=== PATIENT | male | born 1990 | race Caucasian/White ===

== ENCOUNTER 2016-09-08 21:50 | Emergency (ER) | payer SELFPAY ==
[2016-09-08] MEDS ORDERED: NORMAL SALINE 1000 ML 1,000 ML IV ONE (22:54)
[2016-09-08] MEDS ORDERED: IPRATROPIUM/ALBUTEROL 0.5-2.5 MG/3 ML AMPUL NEB ONE (22:54)
[2016-09-08] MEDS ORDERED: METHYLPREDNISOLONE INJ 125 MG/2 ML SDV IV ONE (22:54)
--- NOTE | 2016-09-08 22:55 | ER Document Report ---
HPI - HPI Patient complains to provider of: Cough and wheezing Onset: Other - 3 days Onset/Duration: Persistent Quality of pain: Achy Pain Level: 3 Context: Patient complains of productive cough for the past 3 days with wheezing. Patient complains of congestion and chest discomfort. Patient denies any fever. Patient states he has had symptoms like this in the past when he was diagnosed with pneumonia. Associated Symptoms: Chest pain, Productive cough, Rhinnorhea. denies: Fever, Sore throat Exacerbated by: Coughing, Deep breathing Relieved by: Denies Similar symptoms previously: Yes Recently seen / treated by doctor: No - ROS ROS below otherwise negative: Yes Systems Reviewed and Negative: Yes All other systems reviewed and negative - CONSTITUTIONAL Constitutional: REPORTS: Chills. DENIES: Fever - EENT EENT: REPORTS: Nasal Drainage-Clear, Congestion - CARDIOVASCULAR Cardiovascular: REPORTS: Chest pain - RESPIRATORY Respiratory: REPORTS: Coughing. DENIES: Trouble Breathing - GASTROINTESTINAL Gastrointestinal: DENIES: Abdominal Pain, Nausea, Patient vomiting - REPRODUCTIVE Reproductive: DENIES: : - MUSCULOSKELETAL Musculoskeletal: DENIES: Back Pain - DERM Skin Color: Normal Skin Problems: None Past Medical History - General Information source: Patient - Social History Smoking Status: Current Every Day Smoker Frequency of alcohol use: None Drug Abuse: None Occupation: restaurant Lives with: Spouse/Significant other Family History: Arthritis, COPD, DM, Hyperlipidemia, Hypertension, Malignancy Patient has suicidal ideation: No Patient has homicidal ideation: No Pulmonary Medical History: Reports: Hx Asthma, Hx Bronchitis, Hx Pneumonia Renal/ Medical History: Denies: Hx Peritoneal Dialysis Psychiatric Medical History: Denies: Hx Depression Surgical Hx: Negative - Immunizations Immunizations up to date: Yes Hx Diphtheria, Pertussis, Tetanus Vaccination: Yes Vertical Provider Document - CONSTITUTIONAL Agree With Documented VS: Yes Exam Limitations: No Limitations General Appearance: WD/WN, No Apparent Distress - INFECTION CONTROL TRAVEL OUTSIDE OF THE [place] IN LAST 30 DAYS: No - HEENT HEENT: Atraumatic, Normocephalic. negative: Pharyngeal Exudate, Pharyngeal Tenderness, Pharyngeal Erythema, Tympanic Membrane Red, Tympanic Membrane Bulging Notes: clear rhinorrhea - NECK Neck: Normal Inspection, Supple. negative: Lymphadenopathy-Left, Lymphadenopathy-Right - RESPIRATORY Respiratory: No Respiratory Distress, Wheezing O2 Sat by Pulse Oximetry: 97 - CARDIOVASCULAR Cardiovascular: Regular Rhythm, No Murmur, Tachycardia - BACK Back: Normal Inspection - MUSCULOSKELETAL/EXTREMETIES Musculoskeletal/Extremeties: AMADORAURORAMONIQUE - NEURO Level of Consciousness: Awake, Alert, Appropriate Motor/Sensory: No Motor Deficit - DERM Integumentary: Warm, Dry, No Rash Course - Re-evaluation Re-evalutation: 09/09/16 02:48 Patient with decreased wheezing and increased air movement bilaterally. Patient states he is feeling much improved. Patient advised of his hypokalemia and need to see a primary doctor to have this rechecked. Discussed increasing potassium intake through diet. 09/09/16 02:50 The patient has been informed that they may have pre-hypertension or hypertension based on a blood pressure reading in the emergency department. I recommend that patient call the primary care provider listed on their discharge instructions or a physician of their choice by this week to arrange follow-up for further evaluation of possible pre-hypertension her hypertension. 09/09/16 04:39 - Vital Signs Vital signs: Temp Pulse Resp BP Pulse Ox 98.1 F 119 H 20 141/76 H 97 09/08/16 21:55 09/08/16 21:55 09/08/16 21:55 09/08/16 21:55 09/08/16 21:55 - Laboratory Result Diagrams: 09/08/16 23:50 09/08/16 23:50 Laboratory results interpreted by me: 09/09/16 02:49 Labs- Last Values WBC 9.9 10^3/uL (4.0-10.5) 09/08/16 23:50 RBC 4.76 10^6/uL (4.35-5.55) 09/08/16 23:50 Hgb 13.3 g/dL (13.5-17.0) L 09/08/16 23:50 Hct 40.2 % (37.9-51.0) 09/08/16 23:50 MCV 84 fl (80-97) 09/08/16 23:50 MCH 27.9 pg (27.0-33.4) 09/08/16 23:50 MCHC 33.1 g/dL (32.0-36.0) 09/08/16 23:50 RDW 14.1 % (11.5-14.0) H 09/08/16 23:50 Plt Count 210 10^3/uL (150-450) 09/08/16 23:50 Seg Neutrophils % 72.5 % (42-78) 09/08/16 23:50 Lymphocytes % 14.8 % (13-45) 09/08/16 23:50 Monocytes % 11.0 % (3-13) 09/08/16 23:50 Eosinophils % 1.1 % (0-6) 09/08/16 23:50 Basophils % 0.6 % (0-2) 09/08/16 23:50 Absolute Neutrophils 7.2 10^3/uL (1.7-8.2) 09/08/16 23:50 Absolute Lymphocytes 1.5 10^3/uL (0.5-4.7) 09/08/16 23:50 Absolute Monocytes 1.1 10^3/uL (0.1-1.4) 09/08/16 23:50 Absolute Eosinophils 0.1 10^3/uL (0.0-0.6) 09/08/16 23:50 Absolute Basophils 0.1 10^3/uL (0.0-0.2) 09/08/16 23:50 Sodium 140.4 mmol/L (137-145) 09/08/16 23:50 Potassium 3.3 mmol/L (3.6-5.0) L 09/08/16 23:50 Chloride 102 mmol/L (98-107) 09/08/16 23:50 Carbon Dioxide 27 mmol/L (22-30) 09/08/16 23:50 Anion Gap 11 (5-19) 09/08/16 23:50 BUN 12 mg/dL (7-20) 09/08/16 23:50 Creatinine 0.83 mg/dL (0.52-1.25) 09/08/16 23:50 Est GFR ( Amer) > 60 (>60) 09/08/16 23:50 Est GFR (Non-Af Amer) > 60 (>60) 09/08/16 23:50 Glucose 96 mg/dL (75-110) 09/08/16 23:50 Calcium 9.1 mg/dL (8.4-10.2) 09/08/16 23:50 - Diagnostic Test Radiology reviewed: Reports reviewed Discharge - Discharge Clinical Impression: Asthma exacerbation, Hypokalemia, Elevated blood pressure reading Upper respiratory infection Qualifiers: URI type: unspecified URI Qualified Code(s): J06.9 - Acute upper respiratory infection, unspecified Condition: Stable Disposition: HOME, SELF-CARE Instructions: Chest Wall Pain ([facility]), Upper Respiratory Illness ([facility]), Asthma ( [facility]), Steroid Medication, Inhaled Bronchodilators ([facility]), Hypokalemia ([facility]) Additional Instructions: Return as needed for any new or worsening symptoms Follow Up with a primary care for further evaluation, call this week for an appointment Your blood pressure was mildly elevated today, recheck with your primary doctor Your potassium was mildly decreased today, increase foods rich in potassium in your diet. Prescriptions: Albuterol Sulfate [Ventolin Hfa] 2 puff IH Q4HP PRN #17 gm PRN Reason: Prednisone [Deltasone 20 mg Tablet] 3 tab PO DAILY 4 Days Forms: Elevated Blood Pressure, Return to Work Referrals: [facility] [Provider Group] - Follow up in 3-5 days
--- NOTE | 2016-09-08 23:35 | RADIOLOGY REPORT (SQ) ---
EXAM DESCRIPTION: CHEST PA/LAT COMPLETED DATE/TIME: 09/08/2016 11:28 pm REASON FOR STUDY: cough COMPARISON: None. EXAM PARAMETERS: NUMBER OF VIEWS: two views TECHNIQUE: Digital Frontal and Lateral radiographic views of the chest acquired. RADIATION DOSE: NA LIMITATIONS: none FINDINGS: LUNGS AND PLEURA: No opacities, masses or pneumothorax. No pleural effusion. MEDIASTINUM AND HILAR STRUCTURES: No masses or contour abnormalities. HEART AND VASCULAR STRUCTURES: Heart normal size. No evidence for failure. BONES: No acute findings. HARDWARE: None in the chest. OTHER: No other significant finding. IMPRESSION: NO SIGNIFICANT RADIOGRAPHIC FINDING IN THE CHEST. TECHNICAL DOCUMENTATION: JOB ID: [id number] [employer]- All Rights Reserved
[2016-09-09] LABS: ABSOLUTE BASOPHILS # (AUTO) 0.1 10^3/uL (0.0-0.2); ABSOLUTE EOSINOPHILS # (AUTO) 0.1 10^3/uL (0.0-0.6); ABSOLUTE LYMPHOCYTES (AUTO) 1.5 10^3/uL (0.5-4.7); ABSOLUTE MONOCYTES (AUTO) 1.1 10^3/uL (0.1-1.4); ABSOLUTE NEUT (AUTO) 7.2 10^3/uL (1.7-8.2); BASOPHILS % (AUTO) 0.6 % (0-2); EOSINOPHILS % (AUTO) 1.1 % (0-6); HEMATOCRIT 40.2 % (37.9-51.0); HEMOGLOBIN 13.3 g/dL (13.5-17.0); HGB HCT DIFFERENCE -0.3; LYMPHOCYTES % (AUTO) 14.8 % (13-45); MEAN CORPUSCULAR HEMOGLOBIN 27.9 pg (27.0-33.4); MEAN CORPUSCULAR HGB CONC 33.1 g/dL (32.0-36.0); MEAN CORPUSCULAR VOLUME 84 fl (80-97); RED BLOOD COUNT 4.76 10^6/uL (4.35-5.55); RED CELL DISTRIBUTION WIDTH 14.1 % (11.5-14.0); SEGMENTED NEUTROPHILS % (AUTO) 72.5 % (42-78); WHITE BLOOD COUNT 9.9 10^3/uL (4.0-10.5)
[2016-09-09 00:17] LABS: ANION GAP 11 (5-19); BLOOD UREA NITROGEN 12 mg/dL (7-20); CALCIUM 9.1 mg/dL (8.4-10.2); CARBON DIOXIDE 27 mmol/L (22-30); CHLORIDE 102 mmol/L (98-107); CREATININE RESULT 0.83 mg/dL (0.52-1.25); GLUCOSE 96 mg/dL (75-110); POTASSIUM 3.3 mmol/L (3.6-5.0); SODIUM 140.4 mmol/L (137-145)
[2016-09-09] MEDS ORDERED: ALBUTEROL SULFATE 0.083% NEB 2.5 MG/3 ML AMPUL NEB ONE ×2 (00:29→00:55)
[2016-09-09] MEDS ORDERED: POTASSIUM CHLORIDE 10 MEQ TABLET.SA PO ONE (02:48)
[2016-09-09 03:42] VITALS: BP 114/55
== END 2016-09-09 03:20 | disposition home or self-care (01) ==
LOC: ER 21:50
DX: J45.901 Unspecified asthma with (acute) exacerbation (principal); J06.9 Acute upper respiratory infection, unspecified; E87.6 Hypokalemia; R03.0 Elevated blood-pressure reading, without diagnosis of hypertension; R05 Cough; R07.9 Chest pain, unspecified; J34.89 Other specified disorders of nose and nasal sinuses; R00.0 Tachycardia, unspecified; R68.83 Chills (without fever); F17.200 Nicotine dependence, unspecified, uncomplicated; Z87.01 Personal history of pneumonia (recurrent); Z82.49 Family history of ischemic heart disease and other diseases of the circulatory system
CPT/HCPCS: 94640 ×2; 99285; 96374; 36415; 87040; 85025; 80048; 71020; J2930; J7030; J7620

== ENCOUNTER 2019-01-29 07:49 | Emergency (ER) | payer SELFPAY ==
[2019-01-29 09:01] LABS: ABSOLUTE BASOPHILS # (AUTO) 0.1 10^3/uL (0.0-0.2); ABSOLUTE LYMPHOCYTES (AUTO) 1.1 10^3/uL (0.5-4.7); ABSOLUTE MONOCYTES (AUTO) 0.7 10^3/uL (0.1-1.4); ABSOLUTE NEUT (AUTO) 14.5 10^3/uL (1.7-8.2); BASOPHILS % (AUTO) 0.4 % (0-2); EOSINOPHILS % (AUTO) 0.1 % (0-6); HEMATOCRIT 38.9 % (37.9-51.0); HEMOGLOBIN 13.3 g/dL (13.5-17.0); LYMPHOCYTES % (AUTO) 6.7 % (13-45); MEAN CORPUSCULAR HEMOGLOBIN 29.1 pg (27.0-33.4); MEAN CORPUSCULAR HGB CONC 34.1 g/dL (32.0-36.0); MEAN CORPUSCULAR VOLUME 85 fl (80-97); PLATELET COUNT 253 10^3/uL (150-450); RED BLOOD COUNT 4.56 10^6/uL (4.35-5.55); RED CELL DISTRIBUTION WIDTH 14.2 % (11.5-14.0); SEGMENTED NEUTROPHILS % (AUTO) 88.8 % (42-78); TOTAL CELLS COUNTED % (AUTO) 100 %; WHITE BLOOD COUNT 16.4 10^3/uL (4.0-10.5)
[2019-01-29] MEDS ORDERED: PROMETHAZINE HCL INJ 25 MG/1 ML VIAL IV ONE (09:19)
[2019-01-29] MEDS ORDERED: NORMAL SALINE 1000 ML 1,000 ML IV ONE (09:19)
--- NOTE | 2019-01-29 09:21 | ER Document Report ---
ED General - General Chief Complaint: Nausea/Vomiting Stated Complaint: VOMITING Time Seen by Provider: 01/29/19 09:12 TRAVEL OUTSIDE OF THE [place] IN LAST 30 DAYS: No - HPI Notes: Patient is a 28-year-old male presents emergency department for evaluation of nausea, vomiting, diarrhea. Symptoms started in the middle the night. He has had some cramping abdominal pain associated with it. He states his been running hot and cold, with occasional chills and sweats. He has a cough, but states that it is his normal asthmatic cough. He states that is nonproductive. He is still urinating. Denies any abnormal travel or ingestions as of late. - Related Data Allergies/Adverse Reactions: No Known Allergies Allergy (Verified 01/29/19 07:59) Home Medications: Generic Benadryl Past Medical History - General Information source: Patient - Social History Smoking Status: Current Every Day Smoker Chew tobacco use (# tins/day): No Frequency of alcohol use: None Drug Abuse: None Family History: Arthritis, COPD, DM, Hyperlipidemia, Hypertension, Malignancy Patient has suicidal ideation: No Patient has homicidal ideation: No Pulmonary Medical History: Reports: Hx Asthma, Hx Bronchitis, Hx Pneumonia Renal/ Medical History: Denies: Hx Peritoneal Dialysis Psychiatric Medical History: Denies: Hx Depression - Immunizations Immunizations up to date: Yes Hx Diphtheria, Pertussis, Tetanus Vaccination: Yes Review of Systems - Review of Systems Constitutional: See HPI EENT: No symptoms reported Cardiovascular: No symptoms reported Respiratory: See HPI Gastrointestinal: See HPI Genitourinary: No symptoms reported Musculoskeletal: No symptoms reported Skin: No symptoms reported Neurological/Psychological: No symptoms reported Physical Exam - Vital signs Vitals: Pulse Resp BP Pulse Ox 59 L 22 H 145/77 H 100 01/29/19 07:56 01/29/19 07:56 01/29/19 07:56 01/29/19 07:56 - Notes Notes: Vital signs reviewed, please refer to chart. Head is normocephalic, atraumatic. Pupils equal round, reactive to light. Neck is supple without meningismus. H eart is regular rate and rhythm. Lungs are clear to auscultation bilaterally. Abdomen is soft, nontender, normoactive bowel sounds throughout. Extremities without cyanosis, clubbing. Posterior calves are nontender. Peripheral pulses are equal. Skin is warm and dry. Patient is awake, alert, neurological exam is nonfocal. Course - Re-evaluation Re-evalutation: 01/29/19 09:21 Patient is a 28-year-old male who presents emergency department for evaluation of nausea, vomiting, diarrhea. Vital signs are unremarkable, still awaiting temperatures he was actively vomiting. His findings are most consistent with a likely viral gastroenteritis. Awaiting lab work. Patient is treated symptomatically with IV fluids, Phenergan, will continue to monitor. 01/29/19 12:57 Patient feeling improved. No further emesis while here, resting comfortably. We will send him home with Zofran and close follow-up. - Vital Signs Vital signs: Temp Pulse Resp BP Pulse Ox 97.9 F 59 L 22 H 145/77 H 100 01/29/19 09:00 01/29/19 07:56 01/29/19 07:56 01/29/19 07:56 01/29/19 07:56 - Laboratory Result Diagrams: 01/29/19 08:25 01/29/19 08:25 Laboratory results interpreted by me: 01/29/19 01/29/19 01/29/19 08:25 08:25 12:36 WBC 16.4 H Hgb 13.3 L RDW 14.2 H Lymph % (Auto) 6.7 L Absolute Neuts (auto) 14.5 H Seg Neutrophils % 88.8 H Glucose 161 H Calcium 10.4 H Urine Protein 30 H Urine Ketones TRACE H Discharge - Discharge Clinical Impression: Nausea vomiting and diarrhea Condition: Stable Disposition: HOME, SELF-CARE Instructions: Diarrhea, Nonspecific ([facility]), Vomiting ([facility])
[2019-01-29 09:26] LABS: BLOOD UREA NITROGEN 17 mg/dL (7-20); CALCIUM 10.4 mg/dL (8.4-10.2); CHLORIDE 107 mmol/L (98-107); GLUCOSE 161 mg/dL (75-110); POTASSIUM 4.7 mmol/L (3.6-5.0)
[2019-01-29 09:27] LABS: ALKALINE PHOSPHATASE 76 U/L (38-126); ANION GAP 12 (5-19); ASPARTATE AMINO TRANSFERASE 38 U/L (17-59); BILIRUBIN,DIRECT 0.1 mg/dL (0.0-0.4); BILIRUBIN,TOTAL 0.4 mg/dL (0.2-1.3); CARBON DIOXIDE 26 mmol/L (22-30); TOTAL PROTEIN 7.9 g/dL (6.3-8.2)
[2019-01-29 12:53] LABS: APPEARANCE,URINE SLIGHTLY-CLOUDY; BILIRUBIN,URINE NEGATIVE (NEGATIVE); COLOR,URINE YELLOW; GLUCOSE, URINE NEGATIVE (NEGATIVE); KETONES,URINE TRACE mg/dL (NEGATIVE); LEUKOCYTE ESTERASE,URINE NEGATIVE (NEGATIVE); NITRITE,URINE NEGATIVE (NEGATIVE); PROTEIN,URINE 30 mg/dL (NEGATIVE); URINE SPECIFIC GRAVITY 1.024; UROBILINOGEN,URINE NEGATIVE mg/dL (<2.0)
[2019-01-29 14:48] VITALS: BP 147/62
== END 2019-01-29 14:20 | disposition home or self-care (01) ==
LOC: ER 07:49
DX: R11.2 Nausea with vomiting, unspecified (principal); R19.7 Diarrhea, unspecified; R10.84 Generalized abdominal pain; F17.200 Nicotine dependence, unspecified, uncomplicated
CPT/HCPCS: 36415; 85025; 80053; 81001; J2550; J7030